=== PATIENT | female | born 1965 | race Caucasian/White ===

== ENCOUNTER 2019-09-25 12:46 | Emergency (ER) | payer OTHER ==
[~2019-09-25] VITALS: Ht 175.3 cm; Wt 68.0 kg
[~2019-09-25 12:46] MED LIST: MIRALAX255 GM PO; [UNRECOGNIZED DRUG - REMARK]
[2019-09-25] MEDS ORDERED: PROGESTERO50 MG/1 M3 IM (13:02)
[2019-09-25] MEDS ORDERED: ACYCLOVIR 400400 MG PO (13:03)
[2019-09-25] MEDS ORDERED: FLEXERIL PO (13:47)
[2019-09-25] MEDS ORDERED: IBUPROFEN 800800 M1 PO (13:47)
[2019-09-25 14:00] VITALS: BP 121/72
== END 2019-09-25 14:01 | disposition home or self-care (01) ==
LOC: M.ERS 12:46
DX: S16.1XXA Strain of muscle, fascia and tendon at neck level, initial encounter (principal); W55.12XA Struck by horse, initial encounter; Y93.89 Activity, other specified; Y92.89 Other specified places as the place of occurrence of the external cause; Y99.8 Other external cause status